=== PATIENT | male | born 1990 | race Caucasian/White ===

== ENCOUNTER 2016-07-02 19:32 | Emergency (ER) | payer OTHER ==
[~2016-07-02] VITALS: Ht 190.5 cm; Wt 112.4 kg
[2016-07-02 19:51] VITALS: TEMP 36.6; Ht 190.5 cm; Wt 112.4 kg
--- NOTE | 2016-07-02 20:51 | DIAGNOSTIC IMAGING REPORT ---
LEFT ANKLE MIN 3 VIEWS ROUTINE CLINICAL HISTORY: Left ankle pain COMPARISON: None. DISCUSSION: No fractures or dislocations are visualized. The ankle mortise appears intact on these nonstress views. IMPRESSION: No fractures, dislocations, or destructive changes are visualized Electronically signed by: Jose Malcolm M.D. 07/02/2016 8:49 PM Dictated Date/Time: 07/02/2016 8:48 PM
--- NOTE | 2016-07-02 21:19 | EMERGENCY ROOM VISIT NOTE ---
ED Visit Note First contact with patient: 21:08 CHIEF COMPLAINT: Ankle pain HISTORY OF PRESENT ILLNESS: This 26-year-old male patient presents to the emergency department ambulatory after sustaining an injury to the left ankle with a twisting, inversion motion when he rolled his ankle while trying to catch a football. Complains of moderate swelling and pain. The patient complains of pain along the outside of the ankle. The patient does not have pain of the foot. The patient rates the pain as sharp and 6/10. There was no audible pop. The patient is able to bear weight on the foot with moderate difficulty. Constant pain, worse with movement, weight bearing, and the dependent position. No knee pain, the patient is able to move their toes. No numbness or weakness of the foot, no laceration. The patient has had a previous injury to this ankle, sprain. The patient has taken nothing for the pain. The patient denies any other injury. REVIEW OF SYSTEMS: A 6 system review of systems was completed with positives and pertinent negatives listed in the HPI. ALLERGIES: No known drug allergies MEDICATIONS: None PMH: None SOCIAL HISTORY: The patient is a [employer] student PHYSICAL EXAM: Vital Signs: Reviewed Nurse's notes, vital signs stable. GENERAL : This is a 26-year-old male, no acute distress, but appears in pain, well- developed, well-nourished. MENTAL STATUS: Alert, oriented to person place and time, and cooperative. MUSCULOSKELETAL: The left ankle is swollen and tender over the lateral malleolus, but the skin is intact and there is no ligamentous instability. There is no fifth metatarsal tenderness. There is no tenderness over the rest of the foot. There is no calf or tibia/fibular tenderness. There is no visual deformity. The foot and toes are warm and well-perfused. Dorsalis pedis pulse 2+. Sensation to pain and light touch is intact. Capillary refill less than 2 seconds. EMERGENCY DEPARTMENT COURSE: I examined the patient. X-rays of the left ankle were reviewed by myself and read by radiology and reveal no fracture dislocation. A gel splint was applied to the ankle under my direction and the position was satisfactory. Neurovascular status was rechecked and intact. The patient was instructed on the use of crutches. The patient was discharged home in good condition. LEFT ANKLE MIN 3 VIEWS ROUTINE CLINICAL HISTORY: Left ankle pain COMPARISON: None. DISCUSSION: No fractures or dislocations are visualized. The ankle mortise appears intact on these nonstress views. IMPRESSION: No fractures, dislocations, or destructive changes are visualized Current/Historical Medications Scheduled Amoxicillin & Pot Clavulanate (Augmentin 875-125 mg), 1 TAB PO BID Allergies Coded Allergies: No Known Allergies (Unverified , 08/08/13) Vital Signs Date Time Temp Pulse Resp B/P Pulse Ox O2 Delivery O2 Flow Rate FiO2 07/02/16 21:44 86 18 132/83 97 07/02/16 19:51 36.6 118 18 147/74 97 Room Air Departure Information Impression Primary Impression: Left ankle sprain Dispostion Home / Self-Care Condition GOOD Referrals No Doctor, Assigned (PCP) Justin Rebolledo MD Patient Instructions [facility] Additional Instructions Ice and elevate ankle for swelling and pain. Crutches with weight bearing as tolerated. Wear the splint 7-14 days or until pain subsides. Ibuprofen 600 mg every 6 hrs for pain. If ankle has not improved within 5-7 days, follow-up family doctor or orthopedic surgeon for further evaluation and management. Problem Qualifiers Primary Impression: Left ankle sprain Encounter type: initial encounter
[2016-07-02] MEDS ORDERED: AMOX875T PO (21:23)
[2016-07-02 21:44] VITALS: BP 132/83; PULSE 86; O2SAT 97
== END 2016-07-02 21:44 | disposition home or self-care (01) ==
LOC: C.EDB 19:33 → C.EDD 21:44
DX: S93.402A Sprain of unspecified ligament of left ankle, initial encounter (principal); X58.XXXA Exposure to other specified factors, initial encounter